=== PATIENT | male | born 1975 | race Two or more races ===

== ENCOUNTER 2024-02-26 14:11 | Emergency (ER) | payer OTHER, SELFPAY ==
[2024-02-26] VITALS (9 sets, daily range): BP systolic 116–132; BP diastolic 76–92; PULSE 60–71; RESP 14–18; TEMP 36.3–36.4; O2SAT 98–99
--- NOTE | ~2024-02-26 | XR_ITS ---
CHEST RADIOGRAPH, PA AND LATERAL CLINICAL HISTORY: cough, weak, EXPOSURE TO MOLD . COMPARISON: None available TECHNIQUE: PA and lateral views of the chest. FINDINGS The cardiomediastinal silhouette is unremarkable. The lungs are clear. Visualized osseous structures and soft tissues are unremarkable. IMPRESSION: No focal infiltrate or effusion. Reviewed, dictated and finalized at location A. [employer]
--- NOTE | 2024-02-26 15:35 | ED_ITS ---
HPI - General Adult General Chief complaint: Unspecified <SENA Bernal Last Filed: 02/26/24 15:41> Stated complaint: weak, cough <SENA Bernal Last Filed: 02/26/24 15:41> Time Seen by Provider: 02/26/24 15:35 <SENA Bernal Last Filed: 02/26/24 15:41> Focused HPI: Patient is a 48 y/o male who presents to the ED with c/o cough. Patient reports he has been sick since last Monday with URI symptoms. He works with [employer] and was exposed to mold/sewage recently. He c/o cough, congestion, sinus pressure, mild shortness of breath, subjective fever, nausea, intermittent dizziness/lightheadedness. Denies other sick contacts, vomiting. GENERAL: Well-appearing, obese with BMI of 33.0, and in no acute distress. HEAD: Normocephalic, atraumatic. CHEST: Clear to auscultation. ?No respiratory distress. Very occasional expiratory wheeze. HEART: Regular rate and rhythm.? NEURO: ?Alert and oriented x3. Patient screened in triage and initial orders placed.? ?Additional care and disposition to be based upon?diagnostic testing and treatment. <SENA Bernal Last Filed: 02/26/24 15:41> Source: patient <SENA Bernal Last Filed: 02/26/24 15:41> Mode of arrival: ambulatory <SENA Bernal Last Filed: 02/26/24 15:41> Limitations: no limitations <SENA Bernal Last Filed: 02/26/24 15:41> History of Present Illness HPI narrative: Agree with the above no. Patient states he was in a a moldy basement the day his symptoms began. States he has burning in chest when he takes a deep breath. Reports cough. He attempted to contact multiple PCPs but was unable to get in for another 2 weeks we came to the ED for further evaluation. Denies prior medical history. <SENA Santiago Last Filed: 02/26/24 18:38> Related Data Allergies/adverse reactions: Allergies Allergy/AdvReac Type Severity Reaction Status Date / Time No Known Allergies Allergy Verified 02/26/24 14:27 <SENA Bernal Last Filed: 02/26/24 15:41> Review of Systems Review of Systems: All systems reviewed & are unremarkable except as noted in HPI and below <SENA Santiago Last Filed: 02/26/24 18:38> Exam Narrative: GENERAL: Well-appearing, well-nourished, and in no acute distress. Anxious appearing HEAD: Normocephalic, atraumatic. EYES: EOMI. ENT: Nares clear, no rhinorrhea or epistaxis. Mucous membranes moist. NECK: Supple. CHEST: Clear to auscultation. No respiratory distress. HEART: Regular rate and rhythm. No murmur heard. Normal peripheral pulses. ABDOMEN: Soft, nontender, nondistended, normal active bowel sounds. EXTREMITIES: Normal range of motion. No edema. SKIN: Warm, dry, no rash. NEURO: No focal deficits. Alert and oriented x3 <SENA Santiago Last Filed: 02/26/24 18:38> Course Vital Signs Vital signs: Vital Signs Temperature 97.4 F L 02/26/24 14:26 Pulse Rate 60 02/26/24 14:26 Respiratory Rate 17 02/26/24 14:26 Blood Pressure 132/77 02/26/24 14:26 Pulse Oximetry 99 02/26/24 14:26 Oxygen Delivery Room Air 02/26/24 14:26 Temperature 97.6 F 02/26/24 16:47 Pulse Rate 69 02/26/24 17:53 Respiratory Rate 16 02/26/24 17:47 Blood Pressure 131/92 H 02/26/24 17:53 Pulse Oximetry 98 02/26/24 16:47 Oxygen Delivery Room Air 02/26/24 14:26 <SENA Bernal Last Filed: 02/26/24 15:41> Vital Signs Temperature 97.4 F L 02/26/24 14:26 Pulse Rate 60 02/26/24 14:26 Respiratory Rate 17 02/26/24 14:26 Blood Pressure 132/77 02/26/24 14:26 Pulse Oximetry 99 02/26/24 14:26 Oxygen Delivery Room Air 02/26/24 14:26 Temperature 97.6 F 02/26/24 16:47 Pulse Rate 69 02/26/24 17:53 Respiratory Rate 16 02/26/24 17:47 Blood Pressure 131/92 H 02/26/24 17:53 Pulse Oximetry 98 02/26/24 16:47 Oxygen Delivery Room Air 02/26/24 14:26 <Gisell Wei PA-C - Last Filed: 02/26/24 18:38> Medical Decision Making MDM Narrative Medical decision making narrative: MSE by MICHELLE in triage. <Precious Gould PA-C - Last Filed: 02/26/24 15:41> MSE by MICHELLE in triage. 48-year-old male with no past medical history presents to emergency department for URI sx for 5 days. See HPI for further history. Vitals are stable. He is afebrile nontoxic appearing. He is satting 99% on room air in no respiratory distress with clear lung sounds. CBC shows no leukocytosis or anemia. Chemistries are unremarkable. COVID, flu RSV are negative. Chest x-ray shows no acute cardiopulmonary findings. EKG shows normal sinus rhythm with a rate of 60 bpm, normal QRS duration, normal QTC, no ischemic changes. Troponin is undetectable. Orthostatic vital signs are normal. Patient updated on workup. He is given Toradol and DuoNeb with improvement. Plan to treat for bronchitis and pleurisy with steroids and albuterol inhaler. Advised to follow-up with PCP. Discussed strict ED return precautions. He is agreeable with the plan verbalized understanding. Discharged in stable c ondition. <Gisell Wei PA-C - Last Filed: 02/26/24 18:38> Vital Signs Vital Signs: Vital Signs Temperature 97.4 F L 02/26/24 14:26 Pulse Rate 60 02/26/24 14:26 Respiratory Rate 17 02/26/24 14:26 Blood Pressure 132/77 02/26/24 14:26 Pulse Oximetry 99 02/26/24 14:26 Oxygen Delivery Room Air 02/26/24 14:26 Temperature 97.6 F 02/26/24 16:47 Pulse Rate 69 02/26/24 17:53 Respiratory Rate 16 02/26/24 17:47 Blood Pressure 131/92 H 02/26/24 17:53 Pulse Oximetry 98 02/26/24 16:47 Oxygen Delivery Room Air 02/26/24 14:26 <SENA Bernal Last Filed: 02/26/24 15:41> Vital Signs Temperature 97.4 F L 02/26/24 14:26 Pulse Rate 60 02/26/24 14:26 Respiratory Rate 17 02/26/24 14:26 Blood Pressure 132/77 02/26/24 14:26 Pulse Oximetry 99 02/26/24 14:26 Oxygen Delivery Room Air 02/26/24 14:26 Temperature 97.6 F 02/26/24 16:47 Pulse Rate 69 02/26/24 17:53 Respiratory Rate 16 02/26/24 17:47 Blood Pressure 131/92 H 02/26/24 17:53 Pulse Oximetry 98 02/26/24 16:47 Oxygen Delivery Room Air 02/26/24 14:26 <SENA Santiago Last Filed: 02/26/24 18:38> Lab Data Result diagrams: 02/26/24 15:43 02/26/24 15:43 <SENA Bernal Last Filed: 02/26/24 15:41> Labs: Lab Results 02/26/24 Range/Units 15:43 WBC 7.9 (4.5-10.0) K/mm3 RBC 4.86 (4.6-6.20) M/mm3 Hgb 14.3 (14.0-18.0) g/dL Hct 42.5 (42.0-52.0) % MCV 87.4 (80-100) fl MCH 29.4 (26-34) pg MCHC 33.6 (32-36) g/dl RDW 12.8 (11.5-14.5) % Plt Count 279 (150-375) k/mm3 MPV 8.6 (7.4-10.4) fl Immature Gran % (Auto) 0.3 (0-0.5) % Neut % (Auto) 69.4 (45.5-73.1) % Lymph % (Auto) 20.7 (18.3-44.2) % [place] % (Auto) 5.8 (2.6-8.5) % Eos % (Auto) 3.2 (0-4.4) % Baso % (Auto) 0.6 (0.2-1.2) % Lymph # (Auto) 1.64 (0.9-3.2) K/mm3 [place] # (Auto) 0.5 (0.1-0.6) K/mm3 Eos # (Auto) 0.3 (0-0.3) K/mm3 Baso # (Auto) 0.1 (0.0-0.1) K/mm3 Abs Immat Gran (auto) 0.02 (0.00-0.031) K/mm3 Absolute Neuts (auto) 5.5 (1.3-6.7) K/mm3 Absolute Nucleated RBC 0.000 (0.0-0.012) K/mm3 Nucleated RBC % 0.0 (0.0-0.2) % Sodium 138 (137-145) mmol/L Potassium 4.3 (3.4-5.0) mmol/L Chloride 105 (98-107) mmol/L Carbon Dioxide 26 (22-30) mmol/L Anion Gap 7 (4-12) mmol/L BUN 19 (9-20) mg/dL Creatinine 1.00 (0.7-1.3) mg/dL Estim Creat Clear Calc 108 ml/min Estimated GFR > 60 (59 - ) Glucose 111 H (65-110) mg/dL Calcium 9.4 (8.4-10.2) mg/dL Total Bilirubin 0.5 (0.2-1.3) mg/dL AST 23 (17-59) U/L ALT 22 (6-50) U/L Alkaline Phosphatase 47 (38-126) U/L Troponin I < 0.012 (0.000-0.034) ng/mL Total Protein 8.0 (6.3-8.2) g/dL Albumin 4.4 (3.5-5.1) g/dL Influenza A (RT-PCR) Negative (Negative) Influenza B (RT-PCR) Negative (Negative) RSV (RT-PCR) Negative (Negative) SARS-CoV-2 RNA (RT-PCR) Negative (Negative) <Precious N. Gaudreault, PA-C - Last Filed: 02/26/24 15:41> Lab Results 02/26/24 Range/Units 15:43 WBC 7.9 (4.5-10.0) K/mm3 RBC 4.86 (4.6-6.20) M/mm3 Hgb 14.3 (14.0-18.0) g/dL Hct 42.5 (42.0-52.0) % MCV 87.4 (80-100) fl MCH 29.4 (26-34) pg MCHC 33.6 (32-36) g/dl RDW 12.8 (11.5-14.5) % Plt Count 279 (150-375) k/mm3 MPV 8.6 (7.4-10.4) fl Immature Gran % (Auto) 0.3 (0-0.5) % Neut % (Auto) 69.4 (45.5-73.1) % Lymph % (Auto) 20.7 (18.3-44.2) % [place] % (Auto) 5.8 (2.6-8.5) % Eos % (Auto) 3.2 (0-4.4) % Baso % (Auto) 0.6 (0.2-1.2) % Lymph # (Auto) 1.64 (0.9-3.2) K/mm3 [place] # (Auto) 0.5 (0.1-0.6) K/mm3 Eos # (Auto) 0.3 (0-0.3) K/mm3 Baso # (Auto) 0.1 (0.0-0.1) K/mm3 Abs Immat Gran (auto) 0.02 (0.00-0.031) K/mm3 Absolute Neuts (auto) 5.5 (1.3-6.7) K/mm3 Absolute Nucleated RBC 0.000 (0.0-0.012) K/mm3 Nucleated RBC % 0.0 (0.0-0.2) % Sodium 138 (137-145) mmol/L Potassium 4.3 (3.4-5.0) mmol/L Chloride 105 (98-107) mmol/L Carbon Dioxide 26 (22-30) mmol/L Anion Gap 7 (4-12) mmol/L BUN 19 (9-20) mg/dL Creatinine 1.00 (0.7-1.3) mg/dL Estim Creat Clear Calc 108 ml/min Estimated GFR > 60 (59 - ) Glucose 111 H (65-110) mg/dL Calcium 9.4 (8.4-10.2) mg/dL Total Bilirubin 0.5 (0.2-1.3) mg/dL AST 23 (17-59) U/L ALT 22 (6-50) U/L Alkaline Phosphatase 47 (38-126) U/L Troponin I < 0.012 (0.000-0.034) ng/mL Total Protein 8.0 (6.3-8.2) g/dL Albumin 4.4 (3.5-5.1) g/dL Influenza A (RT-PCR) Negative (Negative) Influenza B (RT-PCR) Negative (Negative) RSV (RT-PCR) Negative (Negative) SARS-CoV-2 RNA (RT-PCR) Negative (Negative) <SENA Santiago Last Filed: 02/26/24 18:38> Discharge Plan Discharge Clinical Impression: Bronchitis, Pleurisy <SENA Bernal Last Filed: 02/26/24 15:41> Patient Disposition: Home, Self-Care <SENA Bernal Last Filed: 02/26/24 15:41> Condition: Stable <SENA Bernal Last Filed: 02/26/24 15:41> Instructions: Antibiotic Form, Pleurisy (DC), Acute Bronchitis (ED) <SENA Bernal Last Filed: 02/26/24 15:41> Additional Instructions: Your evaluated in the emergency department for cough, congestion, burning chest pain. Your workup here is reassuring. Your symptoms are consistent with bronchitis and pleurisy as discussed. Please take the medications as prescribed and follow-up with the primary care provider. Return to the emergency department if you develop worsening symptoms, shortness of breath, fever or other concerning symptoms. <SENA Bernal Last Filed: 02/26/24 15:41> Prescriptions: New prednisone 20 mg tablet 40 mg PO DAILY Qty: 10 0RF albuterol sulfate 90 mcg/actuation HFA aerosol inhaler 1 inh inhalation QID PRN (Reason: shortness of breath or wheezing) Qty: 6.7 0RF <Precious Gould PA-C - Last Filed: 02/26/24 15:41> Follow-up/Referrals: Kristie Duran MD [Physician] - 1 Day PHYSICIAN,MALWARE ANALYST [Non-Staff] - <Precious Gould PA-C - Last Filed: 02/26/24 15:41>
--- NOTE | 2024-02-26 15:37 | ECG_ITS ---
Test Date: 2024-02-26 15:49:11 Measurements Intervals [place] Rate: 60 P: 30 [place]: 161 QRS: 66 QRSD: 105 T: 50 QT: 398 QTc: 398 Interpretive Statements SINUS RHYTHM NORMAL ECG No previous ECG available for comparison Electronically Signed On 02-26-2024 16:20:36 SCHEDULING AGENT by Joni Cummings D.O.
[2024-02-26 15:47] LABS: Basophils Absolute Auto 0.1 K/mm3 (0.0-0.1); Basophils Percent Auto 0.6 % (0.2-1.2); Eosinophils Absolute Auto 0.3 K/mm3 (0-0.3); Eosinophils Percent Auto 3.2 % (0-4.4); Hematocrit 42.5 % (42.0-52.0); Hemoglobin 14.3 g/dL (14.0-18.0); Immature Granulocyte Absolute 0.02 K/mm3 (0.00-0.031); Immature Granulocyte Percent A 0.3 % (0-0.5); Lymphocytes Absolute Auto 1.64 K/mm3 (0.9-3.2); Lymphocytes Percent Auto 20.7 % (18.3-44.2); Mean Corpuscular HGB Conc 33.6 g/dl (32-36); Mean Corpuscular Hemoglobin 29.4 pg (26-34); Mean Corpuscular Volume 87.4 fl (80-100); Mean Platelet Volume 8.6 fl (7.4-10.4); Monocytes Absolute Auto 0.5 K/mm3 (0.1-0.6); Monocytes Percent Auto 5.8 % (2.6-8.5); Neutrophils Absolute Auto 5.5 K/mm3 (1.3-6.7); Neutrophils Percent Auto 69.4 % (45.5-73.1); Platelet Count Result 279 k/mm3 (150-375); Red Blood Count 4.86 M/mm3 (4.6-6.20); Red Cell Distribution Width 12.8 % (11.5-14.5); White Blood Count 7.9 K/mm3 (4.5-10.0)
[2024-02-26 15:58] LABS: Alanine Aminotransferase 22 U/L (6-50); Albumin Level 4.4 g/dL (3.5-5.1); Alkaline Phosphatase 47 U/L (38-126); Anion Gap 7 mmol/L (4-12); Aspartate Amino Transferase 23 U/L (17-59); Bilirubin,Total 0.5 mg/dL (0.2-1.3); Blood Urea Nitrogen 19 mg/dL (9-20); Calcium 9.4 mg/dL (8.4-10.2); Carbon Dioxide 26 mmol/L (22-30); Chloride 105 mmol/L (98-107); Estimated CRCL calculation 108 ml/min; Estimated Glomerular Filt Rate > 60; Glucose 111 mg/dL (65-110); Potassium 4.3 mmol/L (3.4-5.0); Sodium 138 mmol/L (137-145)
[2024-02-26 16:24] LABS: Influenza A QL RT-PCR Negative (Negative); Influenza B QL RT-PCR Negative (Negative); RSV RNA, RT-PCR Negative (Negative); SARS-CoV-2 RNA PCR Negative (Negative)
[2024-02-26] MEDS: SODIUM CHLORIDE 0.9% IV 1,000 ML 999 ML IV CONT (16:53)
[2024-02-26] MEDS: IPRATROPIUM 0.5 MG/ALBUTEROL SULFATE 2.5 MG AMPUL.NEB 3 ML INHALATION (17:39)
[2024-02-26] MEDS: KETOROLAC 15 MG/ML VIAL (*BKC) IV PUSH (17:49)
[2024-02-26 17:56] LABS: Troponin I < 0.012 ng/mL (0.000-0.034)
== END 2024-02-26 18:45 | disposition home or self-care (01) ==
PROVIDERS: Physician Assistant; Emergency Provider Physician Assistant
DX: J40 Bronchitis, not specified as acute or chronic (principal); R09.1 Pleurisy; Z20.822 Contact with and (suspected) exposure to COVID-19
CPT/HCPCS: 36415; 71046; 80053; 84484; 85025; 87637; 93005; 94640; 96361; 96374; 99284; J1885; J7030